=== PATIENT | male | born 1970 | race Asian ===

== ENCOUNTER 2025-05-03 12:49 | Outpatient (CLI) | payer OTHER, SELFPAY ==
[2025-05-03 19:25] LABS: Hematocrit 45.6 % (37-53); Hemoglobin 15.00 g/dL (11.27-16.99); Mean Corpuscular HGB Conc 32.9 g/dL (30-55); Mean Corpuscular Hemoglobin 29.4 pg (27-33); Mean Corpuscular Volume 89.2 fl (82-101); Nucleated Red Blood Cells % 0 %; Platelet Count 210 10^3/cmm (157-399); Red Blood Count 5.11 10^6/uL (3.85-5.65); White Blood Count 8.14 10^3/uL (3.29-11.43)
[2025-05-03 19:38] LABS: Cholesterol 150 mg/dL (0-200); HDL Cholesterol 57 mg/dL (60-100); Triglycerides 96 mg/dL (0-150)
[2025-05-04 09:12] LABS: Alanine Aminotransferase 48 U/L (0-41); Albumin Level 4.7 g/dL (3.5-5.2); Alkaline Phosphatase 43 U/L (40-130); Anion Gap 18.5 (5-19); Aspartate Amino Transferase 26 U/L (0-40); Blood Urea Nitrogen 12 mg/dL (6-20); Calcium 9.1 mg/dL (8.5-10.5); Carbon Dioxide 21 mmol/L (22-29); Chloride 104 mmol/L (98-107); Globulin 2.5 g/dL (1.3-4.6); Glucose 91 mg/dL (65-115); Osmolality Calculated 287 mOsm/kg (285-295); Potassium 4.5 mmol/L (3.5-5.1); Sodium 139 mmol/L (136-145); Total Protein 7.2 g/dL (6.6-8.7)
[2025-05-04 13:27] LABS: Estmated Average Glucose 117; Hemoglobin A1C 5.7 % (4.0-6.0)
== END 2025-05-03 12:50 | disposition home or self-care (01) ==
PROVIDERS: Visit Provider Internal Medicine Cardiovascular Disease
DX: R07.9 Chest pain, unspecified (principal); I25.10 Atherosclerotic heart disease of native coronary artery without angina pectoris; E78.5 Hyperlipidemia, unspecified
CPT/HCPCS: 36415; 80053; 80061; 83036; 85025; 93005